=== PATIENT | male | born 1985 | race African-American/Black ===

== ENCOUNTER 2025-01-14 23:16 | Emergency (ER) | payer MEDICAID ==
[~2025-01-14] VITALS: Ht 175.3 cm; Wt 79.0 kg
[2025-01-14 23:26] VITALS: O2SAT 99
[2025-01-14 23:33] VITALS: TEMP 36.7; O2SAT 100
[2025-01-15 00:34] VITALS: BP 155/109; PULSE 84; RESP 18
[2025-01-15] MEDS: KETOROLAC 15MG/ML VIAL IM ONE (00:34)
[2025-01-15] MEDS ORDERED: NAPR-1176 MT (01:01)
[2025-01-15] MEDS ORDERED: AMOX1TAB16 MT (01:01)
== END 2025-01-15 01:10 | disposition home or self-care (01) ==
LOC: ER 23:16
DX: K05.10 Chronic gingivitis, plaque induced (principal); I10 Essential (primary) hypertension; Z79.1 Long term (current) use of non-steroidal anti-inflammatories (NSAID); Z88.0 Allergy status to penicillin
CPT/HCPCS: 99283; 96372; J1885